=== PATIENT | male | born 1950 | race Caucasian/White ===

== ENCOUNTER 2017-01-20 14:20 | Emergency (ER) | payer MEDICARE, OTHER ==
[~2017-01-20] VITALS: Ht 176.5 cm; Wt 115.7 kg
[2017-01-20 14:33] VITALS: BP 139/73; PULSE 82; RESP 16; TEMP 98; O2SAT 97
[2017-01-20] MEDS ORDERED: LEVO75TA3 PO (14:48)
[2017-01-20] MEDS ORDERED: SODIUM CHLORIDE 0.9% FLUSH 10 ML FLUSH IV FLUSH PRN (15:15)
[2017-01-20 15:20] VITALS: RESP 15; O2SAT 98
[2017-01-20 15:39] LABS: AUTOMATED NEUTROPHIL # 5.2 TH/MM3 (1.8-7.7); BASOPHIL % 0.5 % (0.0-2.0); EOSINOPHIL # 0.1 TH/MM3 (0-0.4); EOSINOPHIL % 0.8 % (0.0-4.0); HEMATOCRIT 43.4 % (39.0-51.0); HEMO FLAGS DIFF FINAL; LYMPH % 23.9 % (9.0-44.0); LYMPHOCYTE # 1.9 TH/MM3 (1.0-4.8); MEAN CORPUSCULAR HEMOGLOBIN 29.2 PG (27.0-34.0); MEAN CORPUSCULAR HGB CONC 33.9 % (32.0-36.0); MONO % 9.1 % (0.0-8.0); NEUT % 65.7 % (16.0-70.0); PLATELET COUNT 231 TH/MM3 (150-450); RED BLOOD COUNT 5.05 MIL/MM3 (4.50-5.90); RED CELL DISTRIBUTION WIDTH 11.8 % (11.6-17.2); WHITE BLOOD COUNT 7.9 TH/MM3 (4.0-11.0)
[2017-01-20 15:46] LABS: POTASSIUM 3.7 MEQ/L (3.5-5.1)
[2017-01-20 15:49] LABS: BICARBONATE 26.5 MEQ/L (21.0-32.0)
[2017-01-20 15:51] LABS: APTT (PATIENT) 25.6 SEC (24.3-30.1); PROTHROMBIN TIME - PATIENT 11.4 SEC (9.8-11.6)
[2017-01-20] MEDS ORDERED: IOHEXOL 350 MG/ML 10 ML VIAL (for RAD DIAG) IV ONE (16:41)
--- NOTE | 2017-01-20 16:50 | PD ---
HPI Chief Complaint: GI Complaint Time Seen by Provider: 14:53 Travel History International Travel<30 days: No Contact w/Intl Traveler<30days: No Traveled to known affect area: No History of Present Illness HPI 66yo M presents to the ED with c/o no bowel movement since Sunday. Pt states he was straining for a bowel movement 3 days ago and then after the bowel movement, had few drops of blood per rectum. Pt states he has been on pain medication for his tooth. Denies any fever, chest pain, sob, n/v, abdominal pain, focal weakness or numbness. PFSH Past Medical History Medical History: Denies Significant Hx ?: Not Past Surgical History Other Surgery: Yes (TEETH EXTRACTION ) Social History Alcohol Use: No Tobacco Use: No Substance Use: No Allergies-Medications (Allergen,Severity, Reaction): Coded Allergies: No Known Allergies (Unverified , 01/20/17) Reported Meds & Prescriptions Reported Meds & Active Scripts Active Colace (Docusate Sodium) 100 Mg Capsule 100 Mg PO BID 7 Days Reported Levothyroxine (Levothyroxine Sodium) 75 Mcg Tab 75 Mcg PO DAILY Review of Systems Except as stated in HPI: all other systems reviewed are Neg Physical Exam Narrative GENERAL: 66yo M not in distress. SKIN: Focused skin assessment warm/dry. HEAD: Atraumatic. Normocephalic. CARDIOVASCULAR: Regular rate and rhythm. No murmur appreciated. RESPIRATORY: No accessory muscle use. Clear to auscultation. Breath sounds equal bilaterally. GASTROINTESTINAL: Abdomen soft, +TTP LLQ. No rebound tenderness or guarding. RECTAL: Yellow stool. Can feel stool in rectum. Hemaprompt negative. MUSCULOSKELETAL: No obvious deformities. No clubbing. No cyanosis. No edema. NEUROLOGICAL: Awake and alert. No obvious cranial nerve deficits. Motor grossly within normal limits. Normal speech. PSYCHIATRIC: Appropriate mood and affect; insight and judgment normal. Data Data Last Documented VS Vital Signs Date Time Temp Pulse Resp B/P Pulse Ox O2 Delivery O2 Flow Rate FiO2 01/20/17 17:14 68 15 128/71 98 01/20/17 15:20 Room Air 01/20/17 14:33 98.0 Orders Basic Metabolic Panel (Bmp) (01/20/17 15:02) Complete Blood Count With Diff (01/20/17 15:02) Prothrombin Time / Inr (Pt) (01/20/17 15:02) Act Partial Throm Time (Ptt) (01/20/17 15:02) Ct Abd/Pel W Iv Contrast(Rout) (01/20/17 15:02) Iv Access Insert/Monitor (01/20/17 15:02) Ecg Monitoring (01/20/17 15:02) Oximetry (01/20/17 15:02) Sodium Chloride 0.9% Flush (Ns Flush) (01/20/17 15:15) Iohexol 350 Inj (Omnipaque 350 Inj) (01/20/17 16:41) Fleets Enema (Adult) (Fleets Enema (Adul (01/20/17 17:00) Labs Laboratory Tests Test 01/20/17 15:30 White Blood Count 7.9 TH/MM3 Red Blood Count 5.05 MIL/MM3 Hemoglobin 14.7 GM/DL Hematocrit 43.4 % Mean Corpuscular Volume 86.0 FL Mean Corpuscular Hemoglobin 29.2 PG Mean Corpuscular Hemoglobin 33.9 % Concent Red Cell Distribution Width 11.8 % Platelet Count 231 TH/MM3 Mean Platelet Volume 7.6 FL Neutrophils (%) (Auto) 65.7 % Lymphocytes (%) (Auto) 23.9 % Monocytes (%) (Auto) 9.1 % Eosinophils (%) (Auto) 0.8 % Basophils (%) (Auto) 0.5 % Neutrophils # (Auto) 5.2 TH/MM3 Lymphocytes # (Auto) 1.9 TH/MM3 Monocytes # (Auto) 0.7 TH/MM3 Eosinophils # (Auto) 0.1 TH/MM3 Basophils # (Auto) 0.0 TH/MM3 CBC Comment DIFF FINAL Differential Comment Prothrombin Time 11.4 SEC Prothromb Time International 1.0 RATIO Ratio Activated Partial 25.6 SEC Thromboplast Time Sodium Level 140 MEQ/L Potassium Level 3.7 MEQ/L Chloride Level 104 MEQ/L Carbon Dioxide Level 26.5 MEQ/L Anion Gap 10 MEQ/L Blood Urea Nitrogen 19 MG/DL Creatinine 1.20 MG/DL Estimat Glomerular Filtration 60 ML/MIN Rate Random Glucose 260 MG/DL Calcium Level 8.4 MG/DL MDM Medical Decision Making Medical Screen Exam Complete: Yes Emergency Medical Condition: Yes Interpretation(s) Laboratory Tests Test 01/20/17 15:30 White Blood Count 7.9 TH/MM3 (4.0-11.0) Red Blood Count 5.05 MIL/MM3 (4.50-5.90) Hemoglobin 14.7 GM/DL (13.0-17.0) Hematocrit 43.4 % (39.0-51.0) Mean Corpuscular Volume 86.0 FL (80.0-100.0) Mean Corpuscular Hemoglobin 29.2 PG (27.0-34.0) Mean Corpuscular Hemoglobin 33.9 % Concent (32.0-36.0) Red Cell Distribution Width 11.8 % (11.6-17.2) Platelet Count 231 TH/MM3 (150-450) Mean Platelet Volume 7.6 FL (7.0-11.0) Neutrophils (%) (Auto) 65.7 % (16.0-70.0) Lymphocytes (%) (Auto) 23.9 % (9.0-44.0) Monocytes (%) (Auto) 9.1 % (0.0-8.0) Eosinophils (%) (Auto) 0.8 % (0.0-4.0) Basophils (%) (Auto) 0.5 % (0.0-2.0) Neutrophils # (Auto) 5.2 TH/MM3 (1.8-7.7) Lymphocytes # (Auto) 1.9 TH/MM3 (1.0-4.8) Monocytes # (Auto) 0.7 TH/MM3 (0-0.9) Eosinophils # (Auto) 0.1 TH/MM3 (0-0.4) Basophils # (Auto) 0.0 TH/MM3 (0-0.2) CBC Comment DIFF FINAL Differential Comment Prothrombin Time 11.4 SEC (9.8-11.6) Prothromb Time International 1.0 RATIO Ratio Activated Partial 25.6 SEC Thromboplast Time (24.3-30.1) Sodium Level 140 MEQ/L (136-145) Potassium Level 3.7 MEQ/L (3.5-5.1) Chloride Level 104 MEQ/L (98-107) Carbon Dioxide Level 26.5 MEQ/L (21.0-32.0) Anion Gap 10 MEQ/L (5-15) Blood Urea Nitrogen 19 MG/DL (7-18) Creatinine 1.20 MG/DL (0.60-1.30) Estimat Glomerular Filtration 60 ML/MIN (>89) Rate Random Glucose 260 MG/DL (74-106) Calcium Level 8.4 MG/DL (8.5-10.1) Last Impressions Abdomen/Pelvis CT 01/20/17 1502 Signed Impressions: Service Date/Time: Friday, January 20, 2017 16:15 - CONCLUSION: 1. Diverticulosis of the colon and constipation. 2. Status post cholecystectomy. Jevon Deluna MD Differential Diagnosis Constipation vs. diverticulitis vs. obstruction Narrative Course 66yo M with no bowel movement for 3 days. Negative hemaprompt. Since pt did have left lower abdominal tenderness on exam, will obtain labs, CTa/p. Labs reviewed, no leukocytosis. H/H stable at 14.7/43.4. Glucose elevated at 260. No increased anion gap. CTa/p showed diverticulosis of colon and constipation. Status post cholecystectomy. Pt given fleet enema to go home with. He is well appearing. Return precautions given. Diagnosis Primary Impression: Constipation Qualified Code: K59.00 - Constipation, unspecified constipation type Patient Instructions: General Instructions Departure Forms: Tests/Procedures Additional Instructions: Please follow up with your PMD in 3-7 days. Use fleet enema at home and stool softener as needed. Med/Other Pt SpecificInfo: Prescription(s) given Scripts Docusate Sodium (Colace)100 Mg [id number] Mg PO BID 7 Days Prov:Kimberly Ochoa DO 01/20/17 Disposition: 01 DISCHARGE HOME Condition: Stable Kimberly Ochoa DO Jan 20, 2017 16:50
--- NOTE | 2017-01-20 16:53 | RADRPT ---
EXAM DATE/TIME: 01/20/2017 16:15 [facility] COMPARISON: No previous studies available for comparison. INDICATIONS : Constipation and rectal pain. IV CONTRAST: 96 cc Omnipaque 350 (iohexol) IV ORAL CONTRAST: No oral contrast ingested. RADIATION DOSE: 21.43 CTDIvol (mGy) MEDICAL HISTORY : None SURGICAL HISTORY : None. ENCOUNTER: Initial ACUITY: 1 week PAIN SCALE: 4/10 LOCATION: rectum. TECHNIQUE: Volumetric scanning of the abdomen and pelvis was performed. Using automated exposure control and ad justment of the mA and/or kV according to patient size, radiation dose was kept as low as reasonably achievable to obtain optimal diagnostic quality images. DICOM format image data is available electro nically for review and comparison. FINDINGS: LOWER LUNGS: The visualized lower lungs are clear. LIVER: Homogeneous density without lesion. There is no dilation of the biliary tree. Cholecystectomy clips. SPLEEN: Normal size without lesion. PANCREAS: Within normal limits. KIDNEYS: Normal in size and shape. There is no mass, stone or hydronephrosis. ADRENAL GLANDS: Within normal limits. VASCULAR: There is no aortic aneurysm. BOWEL/MESENTERY: The stomach, small bowel, and colon demonstrate no acute abnormality. There is no free intraperitone al air or fluid. Diverticulosis of colon. Constipation with copious amount of stool in the rectum. ABDOMINAL WALL: Within normal limits. RETROPERITONEUM: There is no lymphadenopathy. BLADDER: No wall thickening or mass. REPRODUCTIVE: Within normal limits. INGUINAL: There is no lymphadenopathy or hernia. MUSCULOSKELETAL: Degenerative changes lower lumbar spine.. CONCLUSION: 1. Diverticulosis of the colon and constipation. 2. Status post cholecystectomy. Jevon Deluna MD on January 20, 2017 at 16:49 Board Certified Radiologist. This report was verified electronically.
[2017-01-20] MEDS ORDERED: SOD PHOSPHATE/SOD BIPHOSPHATE (ADULT) ENEMA 133ML RECTAL ONE (17:00)
[2017-01-20] MEDS ORDERED: COLA100C PO (17:08)
[2017-01-20 17:14] VITALS: BP 128/71
== END 2017-01-20 17:22 | disposition home or self-care (01) ==
LOC: PHED 14:20
DX: K59.00 Constipation, unspecified (principal)
CPT/HCPCS: 74177; 80048; 85025; 85610; 85730; 99285; Q9967